=== PATIENT | male | born 1955 ===

== ENCOUNTER 2016-12-12 18:59 | Emergency (ER) | payer MEDICAID ==
[~2016-12-12] VITALS: Ht 177.8 cm; Wt 86.5 kg
[2016-12-12 19:21] VITALS: Ht 177.8 cm; Wt 86.5 kg
[2016-12-12] MEDS ORDERED: LABETALOL HCL 20MG INJ IV ONE ×2 (20:00→22:00)
[2016-12-12 20:18] LABS: BASOPHILS % 0.5 % (0.0-2.0); EOSINOPHILS # 0.1 10^3/ul (0.0-0.5); EOSINOPHILS % 2.1 % (0.0-7.0); HEMATOCRIT 39.1 % (42.0-52.0); HEMOGLOBIN 13.3 g/dl (14.0-18.0); LYMPHOCYTES # 1.5 10^3/ul (0.8-2.9); LYMPHOCYTES % 25.3 % (15.0-51.0); MEAN CORPUSCULAR HEMOGLOBIN 29.7 pg (29.0-33.0); MEAN CORPUSCULAR VOLUME 87.3 fl (82.0-101.0); MEAN PLATELET VOLUME 9.2 fl (7.4-10.4); MONOCYTE # 0.5 10^3/ul (0.3-0.9); MONOCYTES % 9.1 % (0.0-11.0); NEUTROPHIL # 3.6 10^3/ul (1.6-7.5); NEUTROPHILS % 62.8 % (39.0-77.0); PLATELET COUNT 206 10^3/UL (140-415); RED BLOOD COUNT 4.48 10^6/ul (4.70-6.10); RED CELL DISTRIBUTION WIDTH 11.6 % (11.5-14.5); WHITE BLOOD COUNT 5.7 10^3/ul (4.8-10.8)
[2016-12-12 20:35] LABS: ANION GAP 13 (8-16); BLOOD UREA NITROGEN 19 mg/dl (7-20); CALCIUM 9.7 mg/dl (8.4-10.2); CARBON DIOXIDE 27 mmol/L (21-31); CHLORIDE 103 mmol/L (97-110); CREATININE 1.25 mg/dl (0.61-1.24); GLUCOSE 108 mg/dl (70-220); POTASSIUM 4.2 mmol/L (3.5-5.1); SODIUM 139 mmol/L (135-144)
--- NOTE | 2016-12-12 20:43 | RADRPT ---
PROCEDURE: Chest x-ray CLINICAL INDICATION: Chest pain TECHNIQUE: Chest single view COMPARISON: None FINDINGS: The heart is normal in size. The pulmonary vessels are normal in caliber. The lungs are clear. Th e costophrenic angles are sharp. The visualized bony thorax is unremarkable. IMPRESSION: No acute cardiopulmonary disease. Mild atherosclerotic aortic calcification RPTAT: HH .Andre Ortiz MD, Date Time Electronically viewed and signed by .Andre Ortiz MD, MD on 12/12/2016 20:43 .W/
[2016-12-12 20:47] LABS: TROPONIN-I < 0.012 ng/ml (0.00-0.12)
[2016-12-12 21:34] VITALS: TEMP 97.9
[2016-12-12] MEDS ORDERED: AMLODIPINE 10 MG TAB PO ONE (22:00)
[2016-12-12] MEDS ORDERED: METOCLOPRAMIDE 10 MG INJ IV ONE (22:00)
[2016-12-12] MEDS ORDERED: SOD CHLORIDE 0.9% 500 ML IV ONE (22:00)
[2016-12-12] MEDS ORDERED: DIPHENHYDRAMINE 50 MG INJ IV ONE (22:00)
--- NOTE | 2016-12-12 22:27 | RADRPT ---
PROCEDURE: CT BRAIN WITHOUT CONTRAST. CLINICAL INDICATION: Headache with history of hypertension TECHNIQUE: A CT of the brain was performed on a multidetector high-resolution CT scanner utilizing axial imaging from the skull base through the vertex without IV contrast. Multiplanar reformatted images were made. Images were reviewed on a PACS workstation. The CTDIvol is 42.0 mGy and the DLP is 720 mGycm. One or more of the following dose reduction techniques were used: - Automated exposure control. - Adjustment of the mA and/or kV according to patient size. - Use of iterative reconstruction technique. COMPARISON: None FINDINGS: The posterior fossa structures are unremarkable. The arjun, midbrain, and medulla appear to be with n ormal limits. There is no evidence of acute intracranial hemorrhage, infarct, or extra-axial fluid collection. No gross mass effect or midline shift. Cerebral sulci, cisternal spaces, and ventricles are mildly prom inent. The visualized paranasal sinuses are clear. The mastoid air cells are well-aerated. The calvarium is unremarkable. IMPRESSION: 1. No evidence of acute intracranial hemorrhage, infarct, or extra-axial fluid collection. 2. Age appropriate cortical atrophy, otherwise unremarkable CT brain. RPTAT: [facility] Physician Valeria Date Time Electronically viewed and signed by Physician Valeria on 12/12/2016 22:26 NAYELI/
[2016-12-13] MEDS ORDERED: AMLO-147 PO (00:15)
--- NOTE | 2016-12-13 00:23 | ERD ---
ER Documentation Chief Complaint Chief Complaint HEADACHE,DIZZINESS AND HIGH BP, WAS NEVER ON BP MEDS HPI This 61-year-old male comes emergency room for headache and lightheadedness. He has very high blood pressure in triage. His daughter states that she checks his blood pressure at home and is usually with the top number over 200 which is normal for him. He has not seen his doctor this year. He denies any chest pain shortness of breath. His headache is his whole head described as a constant pain that came on 4 days ago gradually and has gotten worse. He has no neurological deficits and no nausea or vomiting. ROS All systems reviewed and are negative except as per history of present illness. Medications Home Meds Active Scripts Amlodipine Besylate* (Amlodipine Besylate*) 10 Mg Tablet, 10 MG PO DAILY, #30 TAB Prov:JOHNATHON COHEN DO 12/13/16 Allergies Allergies: Coded Allergies: No Known Allergy (Unverified , 12/12/16) PMhx/Soc History of Surgery: Yes (R KNEE) Anesthesia Reaction: No Hx Neurological Disorder: No Hx Respiratory Disorders: No Hx Cardiac Disorders: No Hx Psychiatric Problems: No Hx Miscellaneous Medical Probl: Yes (HTN) Hx Alcohol Use: Yes (socially) Hx Substance Use: No Hx Tobacco Use: No Smoking Status: Never smoker Physical Exam Vitals Vital Signs Date Time Temp Pulse Resp B/P Pulse Ox O2 Delivery O2 Flow Rate FiO2 12/12/16 22:52 74 21 165/82 12/12/16 21:34 97.9 70 22 181/95 98 Room Air 12/12/16 20:30 97.9 70 20 163/83 98 Room Air 12/12/16 20:00 97.9 74 20 197/98 98 Room Air 12/12/16 19:21 97.9 87 20 219/105 98 Physical Exam Const: [] Her distress, appears very uncomfortable Head: Atraumatic Eyes: Normal Conjunctiva, EOMI, PERRLA ENT: Normal External Ears, Nose and Mouth. Neck: Full range of motion..~ No meningismus. Resp: Clear to auscultation bilaterally Cardio: Regular rate and rhythm, no murmurs Abd: Soft, non tender, non distended. Normal bowel sounds Skin: No petechiae or rashes Back: No midline or flank tenderness Ext: No cyanosis, or edema, distal pulses intact and bounding, 5 out of 5 strength all extremities Neur: Awake and alert oriented 3, cranial 2 through 12 intact, no cerebellar deficits Psych: Normal Mood and Affect Result Diagram: 12/12/16200412/12/162004 Results 24 hrs Laboratory Tests Test 12/12/16 20:05 White Blood Count 5.710^3/ul Red Blood Count 4.4810^6/ul Hemoglobin 13.3g/dl Hematocrit 39.1% Mean Corpuscular Volume 87.3fl Mean Corpuscular Hemoglobin 29.7pg Mean Corpuscular Hemoglobin Concent 34.0g/dl Red Cell Distribution Width 11.6% Platelet Count 34268^3/UL Mean Platelet Volume 9.2fl Neutrophils % 62.8% Lymphocytes % 25.3% Monocytes % 9.1% Eosinophils % 2.1% Basophils % 0.5% Nucleated Red Blood Cells % 0.0/100WBC Neutrophils # 3.610^3/ul Lymphocytes # 1.510^3/ul Monocytes # 0.510^3/ul Eosinophils # 0.110^3/ul Basophils # 0.010^3/ul Nucleated Red Blood Cells # 0.010^3/ul Sodium Level 139mmol/L Potassium Level 4.2mmol/L Chloride Level 103mmol/L Carbon Dioxide Level 27mmol/L Anion Gap 13 Blood Urea Nitrogen 19mg/dl Creatinine 1.25mg/dl Glucose Level 108mg/dl Calcium Level 9.7mg/dl Troponin I < 0.012ng/ml Current Medications Medications (Trade) Dose Ordered Sig/Oni Route PRN Reason Start Time Stop Time Status Last Admin Dose Admin Labetalol HCl (Labetalol) 20 mg ONCE ONCE IV 12/12/16 20:00 12/12/16 20:01 DC 12/12/16 20:13 Amlodipine Besylate (Norvasc) 10 mg ONCE ONCE PO 12/12/16 22:00 12/12/16 22:01 DC 12/12/16 22:24 Labetalol HCl (Labetalol) 20 mg ONCE ONCE IV 12/12/16 22:00 12/12/16 22:01 DC 12/12/16 22:28 Diphenhydramine HCl (Benadryl) 12.5 mg ONCE ONCE IV 12/12/16 22:00 12/12/16 22:01 DC 12/12/16 22:20 Metoclopramide HCl 10 mg 10 mg ONCE ONCE IV 12/12/16 22:00 12/12/16 22:01 DC 12/12/16 22:24 Sodium Chloride (NS) 500 ml @ 500 mls/hr Q1H ONCE IV 12/12/16 22:00 12/12/16 22:59 DC 12/12/16 22:20 Procedures/MDM 61-year-old male with likely long-standing untreated hypertension. According to the family does have a doctor. He was given an additional 20 mg of labetalol which lowered his blood pressure somewhat but he still had significant headache. Blood pressure also still did have a diastolic over 100 and systolic was in 180s. At that point I ordered a CT ordered more labetalol as well as an amlodipine tab of any rebound hypertension and give him a headache cocktail with 12.5 mg of Benadryl as well as 10 mg of Reglan and 500 cc of normal saline. After this his headache was completely resolved. CT shows no evidence of intracranial abnormality. Patient does have mild renal insufficiency likely secondary to this hypertension. I advised the patient stay in the hospital to him and his family want him to be discharged. They agree to call the primary care doctor first thing in the morning for repeat appointment. I am going to discharge him in his case with amlodipine 10 mg daily. Printed his laboratories to take with him. Strict return precautions to the ER for any concerning symptoms whatsoever. CT head interpretation: I see no acute process. I see no hemorrhage, no mass- effect no midline shift, no skull fracture no ischemic stroke. EKG interpretation: Normal sinus rhythm rate of 68, normal axis, no ST or T- wave changes concerning for acute ischemia, normal intervals. 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 Care time greater than 35 minutes: This time includes treatment of unstable vital signs, hypertensive crisis, use of vasoactive medications with very close monitoring of multiple visits patient's bedside to reassess neuro and cardio dynamic status, review of chart, discussion with patient and family, this does not include billable procedures as none were performed. Departure Diagnosis: Primary Impression: Hypertensive crisis Additional Impressions: Renal insufficiency Acute headache Condition: Stable Patient Instructions: Malignant Hypertension, Hypertension, Established, Out Of Control, Renal Insufficiency Referrals: COMMUNITY CLINICS YOU HAVE RECEIVED A MEDICAL SCREENING EXAM AND THE RESULTS INDICATE THAT YOU DO NOT HAVE A CONDITION THAT REQUIRES URGENT TREATMENT IN THE EMERGENCY DEPARTMENT. FURTHER EVALUATION AND TREATMENT OF YOUR CONDITION CAN WAIT UNTIL YOU ARE SEEN IN YOUR DOCTORS OFFICE WITHIN THE NEXT 1-2 DAYS. IT IS YOUR RESPONSIBILITY TO MAKE AN APPOINTMENT FOR FOLOW-UP CARE. IF YOU HAVE A PRIMARY DOCTOR --you should call your primary doctor and schedule an appointment IF YOU DO NOT HAVE A PRIMARY DOCTOR YOU CAN CALL OUR PHYSICIAN REFERRAL HOTLINE AT IF YOU CAN NOT AFFORD TO SEE A PHYSICIAN YOU CAN CHOSE FROM THE FOLLOWING [facility] [address] [facility] [address] [facility] [address] [facility] [address] [facility]. [facility] [address] [facility]. [facility]. [address] Additional Instructions: Call your primary care doctor TOMORROW for an appointment during the next 1-2 days.See the doctor sooner or return here if your condition worsens before your appointment time. JOHNATHON COHEN DO Dec 13, 2016 00:23
[2016-12-13 01:03] VITALS: BP 120/68; PULSE 65; RESP 16
== END 2016-12-13 01:32 | disposition home or self-care (01) ==
LOC: E/R 18:59
DX: I16.9 Hypertensive crisis, unspecified (principal); N28.9 Disorder of kidney and ureter, unspecified; I10 Essential (primary) hypertension
CPT/HCPCS: 36415; 70450; 71010; 80048; 84484; 85025; 96374; 96375; 96376; J1200; J2765; J7040; Z7502; Z7610; 93005